=== PATIENT | female | born 1950 | race Caucasian/White ===

== ENCOUNTER → 2016-09-16 | Outpatient (CLI) | payer OTHER | LOC: FIMAGING 09:42 | DX: J98.4 Other disorders of lung (principal); I70.0 Atherosclerosis of aorta ==

== ENCOUNTER → 2016-10-01 | Outpatient (CLI) | payer OTHER | LOC: BHFA 11:00 | PROVIDERS: ATTEND Internal Medicine Cardiovascular Disease | DX: J44.9 Chronic obstructive pulmonary disease, unspecified (principal) ==

== ENCOUNTER → 2018-04-17 | Outpatient (CLI) | payer OTHER | LOC: FIMAGING 11:11 | PROVIDERS: ATTEND Internal Medicine Critical Care Medicine | DX: J44.9 Chronic obstructive pulmonary disease, unspecified (principal); R09.02 Hypoxemia ==